=== PATIENT | female | born 1980 | race Caucasian/White ===

== ENCOUNTER 2017-02-18 21:38 | Emergency (ER) | payer OTHER ==
[2017-02-18 22:03] VITALS: BP 109/74
--- NOTE | 2017-02-18 22:25 | ED Physician Documentation ---
General Adult - HISTORIAN Historian: patient, friend - HPI Stated Complaint: possible spider bite Chief Complaint: General Adult Additional Information: pt thinks brown recluse spider bite rt buttocks occ 4-5 days ago-concerned. had prev on lt shoulder w.necrosis area 2-3 cm crater well healed. Onset: days ago (4-5) Timing: still present, worse (probably accd to pt) Severity: moderate - ROS CONST: fever, sweating, weakness, chills EYES/ENT: none CVS/RESP: none GI/: none NEURO/PSYCH: denies: headache, fainting, dizziness - PAST HX Past History: other (prev br recluse bite) Surgeries/Procedures: BTL Immunizations: UTD (3 yrs ago) Allergies/Adverse Reactions: Allergies Allergy/AdvReac Type Severity Reaction Status Date / Time clarithromycin [From Biaxin] Allergy Severe Anaphylaxis Verified 02/19/16 21:55 Home Medications: Ambulatory Orders Medication Instructions Recorded Nitrofurantoin Monohyd/M-Cryst 100 mg PO Q12H #13 capsule 02/19/16 [Macrobid] - SOCIAL HX Smoking History: less than 1 pack/day Alcohol Use: none Drug Use: none - FAMILY HX Family History: No - VITAL SIGNS Vital Signs: Vital Signs Temp Pulse Resp BP Pulse Ox 98.2 F 100 H 16 109/74 98 02/18/17 21:40 02/18/17 21:40 02/18/17 21:40 02/18/17 21:40 02/18/17 21:40 - REVIEWED ASSESSMENTS Nursing Assessment Reviewed: Yes Vitals Reviewed: Yes General Adult Physical Exam - PHYSICAL EXAM GENERAL APPEARANCE: moderate distress EENT: eye inspection normal NECK: normal inspection RESPIRATORY: no resp distress CVS: tachycardia ABDOMEN: soft, non-tender BACK: normal inspection SKIN: warm/dry, normal color. No: diaphoresis, jaundice EXTREMITIES: non-tender, normal range of motion NEURO: oriented X3 Discharge Clincal Impression: brown recluse spider bite Referrals: Primary Doctor,No [Primary Care Provider] - 2 Days Home Medications: Ambulatory Orders Nitrofurantoin Monohyd/M-Cryst [Macrobid] 100 mg PO Q12H #13 capsule 02/19/16 Comments: pt been sick now has tachycardia-suggested lab work - eval pt declines-says because of anxiety Condition: Good Disposition: 01 HOME, SELF-CARE Decision to Admit: NO Decision Time: 22:29
== END 2017-02-18 22:33 | disposition home or self-care (01) ==
LOC: ED 21:38
DX: T63.331A Toxic effect of venom of brown recluse spider, accidental (unintentional), initial encounter (principal); X58.XXXA Exposure to other specified factors, initial encounter; Y93.9 Activity, unspecified; Y99.9 Unspecified external cause status
CPT/HCPCS: 99283

== ENCOUNTER 2018-09-19 14:11 | Outpatient (CLI) | payer OTHER ==
--- NOTE | 2018-09-19 15:11 | Diagnostic Imaging Report ---
<p>Your browser does not support iframes.</p> AMEENA PEREZ [place] [id number] On License Of [facility] [address] [place], [place]. [address] Report Submission Date: Sep 19, 2018 3:02:37 PM CDT Patient Study Name: SHAKIRA SAMPSON Date: Sep 19, 2018 2:09:56 PM CDT Modality Type: DX Gender: F Description: CHEST 2VIEW : [birth year] Institution: [facility] Physician: AMEENA PEREZ Examination: PA and lateral chest. History: Evaluate lung ramirez. COUGH X2 MONTHS Comparison exam: None provided. Findings: PA and lateral views of the chest demonstrates a normal cardiac and mediastinal silhouette. No focal infiltrate. No blunting of the costophrenic margins. Bilateral nipple shadows. Osseous structures are appropriate for age. Impression: No acute pulmonary process. Electronically signed on Sep 19, 2018 3:02:37 PM CDT by: Mickey BANEGAS
--- NOTE | 2018-10-01 13:37 | Diagnostic Imaging Report ---
ANGE ROJAS [facility] [id number] [facility].[address] [address] Report Submission Date: Sep 19, 2018 3:05:37 PM CDT Patient Study Name: TAIWO RUVALCABA Date: Sep 19, 2018 2:24:03 PM CDT Modality Type: DX Gender: F Description: BILAT HIPS 2V (W/PEL IF DONE) : 82 Institution: [facility] Physician: ANGE ROJAS AP pelvis and bilateral hips History: Bilateral hip pain AP pelvis and frog-leg lateral projections of the bilateral hips demonstrate no osseous abnormality. SI joints are patent. Mineralization is normal. There are no significant degenerative findings. Impression: No osseous abnormality. Electronically signed on Sep 19, 2018 3:05:37 PM CDT by: Aliyah BANEGAS
== END 2018-09-19 14:13 ==
LOC: RAD 14:11
PROVIDERS: ATTEND Family Medicine
DX: M25.551 Pain in right hip (principal); M25.552 Pain in left hip
CPT/HCPCS: 73521

== ENCOUNTER 2019-05-18 18:49 | Emergency (ER) | payer OTHER ==
--- NOTE | 2019-05-18 19:21 | ED Physician Documentation ---
General Adult - HISTORIAN Historian: patient - HPI Chief Complaint: General Adult Additional Information: 38 year old female presents with c/o red swollen area to the posterior shoulder that she has had for 3 years. A year ago she popped it and it drained. Over the last 3 days she feels like it may be bigger and black under warm water. She denies any fever, chills, nausea, vomiting or diarrhea. She also mentions burning with urination while she is here. Onset: days ago Timing: still present Severity: mild - ROS CONST: no problems EYES/ENT: none CVS/RESP: none GI/: problems urinating (Dysuria) MS/SKIN/LYMPH: none NEURO/PSYCH: denies: headache - PAST HX Past History: none Other History: none Allergies/Adverse Reactions: Allergies Allergy/AdvReac Type Severity Reaction Status Date / Time clarithromycin [From Biaxin] Allergy Severe Anaphylaxis Verified 02/18/17 23:20 Home Medications: Ambulatory Orders Medication Instructions Recorded Sulfamethoxazole/Trimethoprim 1 each PO BID #14 tab 05/18/19 [Bactrim Ds] - SOCIAL HX Smoking History: greater than 1 pack/day Alcohol Use: none Drug Use: none - FAMILY HX Family History: No - VITAL SIGNS Vital Signs: Vital Signs Temp Pulse Resp BP Pulse Ox 109/74 02/18/17 23:16 - REVIEWED ASSESSMENTS Nursing Assessment Reviewed: Yes Vitals Reviewed: Yes General Adult Physical Exam - PHYSICAL EXAM GENERAL APPEARANCE: no distress EENT: eye inspection normal, ENT inspection normal, pharynx normal, no signs of dehydration, LUIS EDUARDO NECK: normal inspection, supple RESPIRATORY: breath sounds normal CVS: heart sounds normal ABDOMEN: normal bowel sounds, non-tender BACK: normal inspection SKIN: warm/dry, normal color, other (small reddened, swollen area to the left posterior shoulder) EXTREMITIES: normal range of motion NEURO: oriented X3, motor nml, sensation nml, mood/affect nml, cognition normal Discharge Clincal Impression: Abscess Prescriptions: Sulfamethoxazole/Trimethoprim [Bactrim Ds] 1 each PO BID #14 tab Referrals: Greg Farias MD [Primary Care Provider] - 2 Days Additional Instructions: Take Bactrim DS 1 tab by mouth twice a day for 7 days >64 oz of water daily Do not pick or squeeze the affected area Use warm moist heat to the affected area Follow up with PCP next week for re-evaluation Condition: Good Disposition: 01 HOME, SELF-CARE Decision to Admit: NO Decision Time: 19:38
[2019-05-18] MEDS ORDERED: SULFAMETHOXAZOLE/TRIMETHOPRIM 800/160MG TAB PO ONE (19:26)
[2019-05-18 20:11] VITALS: BP 120/74
[2019-05-19 06:32] LABS: OCCULT BLOOD,URINE NEGATIVE (NEGATIVE); PH URINE 5.5 (5.0 - 8.0)
== END 2019-05-18 19:47 | disposition home or self-care (01) ==
LOC: ED 18:49
DX: L02.414 Cutaneous abscess of left upper limb (principal)
CPT/HCPCS: 81002; 99283; 99284; A9270

== ENCOUNTER 2019-06-20 16:39 | Emergency (ER) | payer OTHER ==
--- NOTE | 2019-06-20 17:01 | ED Physician Documentation ---
Sore Throat/Dental Pain - HISTORIAN Historian: patient - HPI Stated Complaint: sore throat x 3 days Chief Complaint: Sore Throat Onset: days ago (3) Context: Possible Infection Associated Symptoms: chills, sore throat, mild, L ear pain Further Comments: yes (she reports sore throat x 3 days. NO fever. She has had chills. She has no sick contacts. No OTC meds) - ROS CONST: no problems NEURO/PSYCH: none - PAST HX Past History: none Allergies/Adverse Reactions: Allergies Allergy/AdvReac Type Severity Reaction Status Date / Time clarithromycin [From Biaxin] Allergy Severe Anaphylaxis Verified 06/20/19 17:12 Home Medications: Ambulatory Orders Medication Instructions Recorded NK 06/20/19 - SOCIAL HX Smoking History: non-smoker Alcohol Use: none Drug Use: none - FAMILY HX Family History: No - VITAL SIGNS Vital Signs: Vital Signs Temp Pulse Resp BP Pulse Ox 98.2 F 86 15 100/77 96 06/20/19 17:10 06/20/19 17:10 06/20/19 17:10 06/20/19 17:10 06/20/19 17:10 - REVIEWED ASSESSMENTS Nursing Assessment Reviewed: Yes Vitals Reviewed: Yes ED Results Lab/Radiology - Orders Orders: ED Orders Category Date Time Status GRP A STREP SCREEN Stat Lab 06/20/19 Ordered Sore throat Physical Exam - EXAM General Appearance: no acute distress Head/Neck: head nml inspection, no lymphadenopathy. No: pain over sinuses, cervical lymphadenopathy Eyes: eyes nml inspection Mouth/Throat: lips nml, gums nml, pharynx nml, voice nml, no drooling, no air way problems, membranes nml, pharyngeal erythema, tonsillar swelling. No: uvular shift Ear/Nose: nml inspection Respiratory: no resp. distress CVS: reg. rate & rhythm, heart sounds nml Abdomen: soft, normal bowel sounds Extremities: non-tender Skin: warm/dry Neuro/Psych: oriented x3 Discharge Clincal Impression: Strep sore throat Referrals: Greg Farias MD [Primary Care Provider] - 2 Days Comments: 1. Amoxicillin 875 mg take 1 by mouth daily x 10 days 2. Medrol dose pack as directed 3. OTC meds as directed as needed for symptom control 4. Follow up with PCP In 2-4 days 5. Return to ER for any increased concerns Condition: Stable Disposition: 01 HOME, SELF-CARE Decision to Admit: NO Date of Decison to Admit: 06/20/19 Decision Time: 17:11
[2019-06-20 17:17] VITALS: BP 100/77
== END 2019-06-20 17:10 | disposition home or self-care (01) ==
LOC: ED 16:39
DX: J02.0 Streptococcal pharyngitis (principal)
CPT/HCPCS: 87070; 87880; 99282; 99284